=== PATIENT | male | born 1995 | race African-American/Black ===

== ENCOUNTER 2018-12-24 22:56 | Emergency (ER) | payer MEDICAID ==
[~2018-12-24] VITALS: Ht 172.7 cm; Wt 60.9 kg
[2018-12-24 23:10] VITALS: BP 138/97
== END 2018-12-24 23:53 | disposition home or self-care (01) ==
LOC: EMS 22:57
DX: F11.10 Opioid abuse, uncomplicated (principal); F17.210 Nicotine dependence, cigarettes, uncomplicated; Z88.8 Allergy status to other drugs, medicaments and biological substances